=== PATIENT | male | born 1935 | race Caucasian/White ===

== ENCOUNTER 2018-04-22 23:33 | Emergency (ER) | payer MEDICARE ==
--- NOTE | 2018-04-23 00:39 | ED ---
HPI Febrile Illness - HPI Summary HPI Summary: Patient with history of dementia from [facility] complains of fever up to 102 tonight and foul-smelling urine per staff. Staff denies any other symptoms. Patient himself denies any symptoms, states he feels normal just like he always does. Denies fever, cough, sore throat, CP, SOB, N/V/V abdominal pain, change, change in BM. - History of Current Complaint Chief Complaint: EDFever Time Seen by Provider: 04/22/18 23:38 Hx Obtained From: Patient, Family/Site Safety Manager Onset/Duration: Started Hours Ago Timing: Constant Current Severity: None Pain Intensity: 0 Pain Scale Used: 0-10 Numeric Aggravating Factors: Nothing Alleviating Factors: Nothing - Allergy/Home Medications Allergies/Adverse Reactions: Allergies Allergy/AdvReac Type Severity Reaction Status Date / Time No Known Allergies Allergy Verified 01/24/16 09:42 PMH/Surg Hx/FS Hx/Imm Hx Endocrine/Hematology History: Denies: Hx Diabetes Cardiovascular History: Reports: Hx Hypercholesterolemia Denies: Hx Congestive Heart Failure, Hx Hypertension Respiratory History: Denies: Hx Lung Cancer History: Denies: Hx Dialysis, Hx Renal Disease Psychiatric History: Reports: Hx Anxiety - Immunization History Date of Tetanus Vaccine: Unk Date of Influenza Vaccine: None Infectious Disease History: No Infectious Disease History: Denies: Traveled Outside the [place] in Last 30 Days - Family History Known Family History: Positive: Unknown - Social History Lives: [facility] Alcohol Use: Occasionally Substance Use Type: Reports: None Smoking Status (MU): Former Smoker Review of Systems Positive: Fever Eyes: Negative ENT: Negative Cardiovascular: Negative Respiratory: Negative Gastrointestinal: Negative Genitourinary: Negative Positive: other Musculoskeletal: Negative Skin: Negative Neurological: Negative Psychological: Normal All Other Systems Reviewed And Are Negative: Yes Physical Exam Triage Information Reviewed: Yes Vital Signs On Initial Exam: Initial Vitals Temp Pulse Resp BP Pulse Ox 100.9 F 85 15 120/76 93 04/22/18 23:36 04/22/18 23:36 04/22/18 23:36 04/22/18 23:36 04/22/18 23:36 Vital Signs Reviewed: Yes Appearance: Positive: Well-Appearing Skin: Positive: Warm Head/Face: Positive: Normal Head/Face Inspection Eyes: Positive: Normal ENT: Positive: Normal ENT inspection Neck: Positive: Supple Respiratory/Lung Sounds: Positive: Clear to Auscultation Cardiovascular: Positive: Normal Abdomen Description: Positive: Nontender Musculoskeletal: Positive: Normal Neurological: Positive: Normal Psychiatric: Positive: Normal AVPU Assessment: Alert - [place] Coma Scale Best Eye Response: 4 - Spontaneous Best Motor Response: 6 - Obeys Commands Best Verbal Response: 5 - Oriented Coma Scale Total: 15 Diagnostics - Vital Signs Vital Signs Temp Pulse Resp BP Pulse Ox 04/22/18 23:36 100.9 F 85 15 120/76 93 - Laboratory Result Diagrams: 04/23/18 00:30 04/23/18 00:30 Lab Statement: Any lab studies that have been ordered have been reviewed, and results considered in the medical decision making process. Course/Dx - Course Course Of Treatment: Patient with history of dementia from [facility] complains of fever up to 102 tonight and foul-smelling urine per staff. Staff denies any other symptoms. Patient himself denies any symptoms, states he feels normal just like he always does. Denies fever, cough, sore throat, CP, SOB, N/V/V abdominal pain, change, change in BM. Physical exam unremarkable. Mild fever 100.9 initially here in the ED, but fever resolved. Blood pressure initailly 120/76, but decreased to 104/55. BUN/CR ratio 26.9. Patient refused IV fluids. Patient has DNR with MOLST form and does not wish to be here at the hospital. Patient's family apparently convinced [facility] staff to send patient to the hospital. Labs appear patient baseline.. Chest x-ray negative. Patient has been noncompliant with producing urine. Due to reported foul smelling urine and fever, we will treat patient with Levaquin here and d/c to group home facility with Rx for levaquin. - Diagnoses Provider Diagnoses: Fever Discharge - Sign-Out/Discharge Documenting (check all that apply): Patient Departure - Discharge Plan Condition: Stable Disposition: CUSTODIAL FACILITY Prescriptions: Levofloxacin TAB* [Levaquin TAB*] 500 mg PO DAILY 7 Days #7 tab Patient Education Materials: Fever in Adults (ED) Referrals: No Primary Care Phys,NOPCP [Primary Care Provider] - Additional Instructions: Take antibiotics as directed. Drink fluids to maintain hydration. Return to the ED for any new or worsening symptoms. - Billing Disposition and Condition Condition: STABLE Disposition: Residential Facility
[2018-04-23 00:43] LABS: Hematocrit 29 % (42-52); Hemoglobin 9.5 g/dl (14.0-18.0); Mean Corpuscular HGB Conc 33 g/dl (31-36); Mean Corpuscular Hemoglobin 30 pg (27-31); Mean Corpuscular Volume 91 fL (80-94); Mean Platelet Volume 9.4 fL (7.4-10.4); Platelet Count 174 10^3/ul (150-450); Red Blood Count 3.16 10^6/ul (4.00-5.40); Red Cell Distribution Width 16 % (10.5-15); White Blood Count 3.9 10^3/ul (3.5-10.8)
[2018-04-23 01:01] LABS: EGFR Non-African American 77.6 (>60)
[2018-04-23 01:05] LABS: ABS Basophils 0 10^3/ul (0-0.2); ABS Eosinophils 0 10^3/ul (0-0.6); ABS Lymphocytes 0.5 10^3/ul (1.0-4.8); ABS Monocytes 0.8 10^3/ul (0-0.8); ABS Neutrophils 2.4 10^3/ul (1.5-7.7); ABS Nucleated RBC 0 10^3/ul
[2018-04-23 01:08] LABS: Monocytes % 20 %
[2018-04-23 01:11] LABS: ABS Neutrophils 2.5 10^3/ul (1.5-7.7)
[2018-04-23] MEDS ORDERED: NS 0.9% 500 ML* 500 ML IV ONE (01:13)
[2018-04-23] MEDS ORDERED: Levofloxacin TAB* 500 MG PO ONE (02:25)
[2018-04-23 02:56] VITALS: BP 104/53
== END 2018-04-23 03:21 ==
LOC: ED 23:33
DX: R50.9 Fever, unspecified (principal); Z87.891 Personal history of nicotine dependence
CPT/HCPCS: 36415; 71045; 80053; 83605; 85025; 85060; 86140; 87040; 99282

== ENCOUNTER 2018-09-08 00:06 | Emergency (ER) | payer MEDICARE ==
[2018-09-08 01:18] LABS: Albumin 2.6 g/dL (3.2-5.2); Albumin/Globulin Ratio 0.7 (1-3); BUN/Creatinine Ratio 28.7 (8-20); Calcium 8.5 mg/dL (8.6-10.3); EGFR African American 85.2 (>60); EGFR Non-African American 70.4 (>60); Globulin 3.7 g/dL (2-4); Potassium 3.7 mmol/L (3.5-5.0); Total Bilirubin 0.6 mg/dL (0.2-1.0); Total Protein 6.3 g/dL (6.4-8.9)
[2018-09-08 01:19] LABS: Hematocrit 29 % (36-46); Hemoglobin 9.2 g/dL (14.0-18.0); Mean Corpuscular HGB Conc 32 g/dL (31-36); Mean Corpuscular Hemoglobin 30 pg (27-31); Mean Corpuscular Volume 92 fL (80-94); Red Blood Count 3.12 10^6 /uL (4.18-5.48); Red Cell Distribution Width 18 % (10.5-15); White Blood Count 6.3 10^3/uL (3.5-10.8)
[2018-09-08 01:20] LABS: Troponin I 0.01 ng/mL (<0.04)
--- NOTE | 2018-09-08 01:36 | ED ---
HPI Chest Pain - HPI Summary HPI Summary: Patient from [facility]. Per EMS patient complains of vomiting and chest pain. EMS states they observed no vomiting or indication of pain. Per [facility] staff, History of fall "days ago" with positive LOC. Patient himself denies any symptoms pain or injury, does not know why he was sent to the ED. Patient alert and oriented, responding coherently. Vital signs within normal limits. - History of Current Complaint Chief Complaint: EDGeneral Time Seen by Provider: 09/08/18 00:46 Hx Obtained From: Patient Current Severity: None Pain Intensity: 0 Pain Scale Used: 0-10 Numeric Aggravating Factor(s): Nothing Alleviating Factor(s): Nothing Associated Signs and Symptoms: Positive: Negative - Allergy/Home Medications Allergies/Adverse Reactions: Allergies Allergy/AdvReac Type Severity Reaction Status Date / Time No Known Allergies Allergy Verified 01/24/16 09:42 PMH/Surg Hx/FS Hx/Imm Hx Endocrine/Hematology History: Denies: Hx Diabetes Cardiovascular History: Reports: Hx Hypercholesterolemia Denies: Hx Congestive Heart Failure, Hx Hypertension Respiratory History: Denies: Hx Lung Cancer History: Denies: Hx Dialysis, Hx Renal Disease Psychiatric History: Reports: Hx Anxiety - Immunization History Date of Tetanus Vaccine: Unk Date of Influenza Vaccine: None Infectious Disease History: Unable to Obtain/Confirm Infectious Disease History: Denies: Traveled Outside the in Last 30 Days - Family History Known Family History: Positive: Unknown - Social History Alcohol Use: None Substance Use Type: Reports: None Smoking Status (MU): Former Smoker Review of Systems Constitutional: Negative Eyes: Negative ENT: Negative Cardiovascular: Negative Respiratory: Negative Gastrointestinal: Negative Genitourinary: Negative Musculoskeletal: Negative Skin: Negative Neurological: Negative Psychological: Normal All Other Systems Reviewed And Are Negative: Yes Physical Exam - Summary Physical Exam Summary: Abdomen soft nontender. RRR. Lung sounds clear to auscultation bilaterally. No peripheral edema. Patient moving all 4 extremities freely. neuro exam normal. No indication of trauma to mouth, face, head noted. No pain with palpation of back, chest wall. Triage Information Reviewed: Yes Vital Signs On Initial Exam: Initial Vitals Temp Pulse Resp BP Pulse Ox 98.1 F 97 16 121/62 93 09/08/18 00:25 09/08/18 00:25 09/08/18 00:25 09/08/18 00:25 09/08/18 00:25 Vital Signs Reviewed: Yes Appearance: Positive: Well-Appearing Skin: Positive: Warm Head/Face: Positive: Normal Head/Face Inspection Eyes: Positive: Normal Dental: Negative: Dental Fracture @, Bleeding Neck: Positive: Supple Respiratory/Lung Sounds: Positive: Clear to Auscultation Cardiovascular: Positive: Normal Abdomen Description: Positive: Nontender Musculoskeletal: Positive: Normal Neurological: Positive: Normal Psychiatric: Positive: Normal AVPU Assessment: Alert - [place] Coma Scale Best Eye Response: 4 - Spontaneous Best Motor Response: 6 - Obeys Commands Best Verbal Response: 5 - Oriented Coma Scale Total: 15 Diagnostics - Vital Signs Vital Signs Temp Pulse Resp BP Pulse Ox 09/08/18 01:07 94 26 113/68 93 09/08/18 01:00 94 22 92 09/08/18 00:37 95 138/67 91 09/08/18 00:36 96 92 09/08/18 00:25 98.1 F 97 16 121/62 93 - Laboratory Lab Results: Lab Results 09/08/18 09/08/18 09/08/18 Range/Units 00:55 00:55 00:55 WBC 6.3 (3.5-10.8) 10^3/uL RBC 3.12 L (4.18-5.48) 10^6 /uL Hgb 9.2 L (14.0-18.0) g/dL Hct 29 L (36-46) % MCV 92 (80-94) fL MCH 30 (27-31) pg MCHC 32 (31-36) g/dL RDW 18 H (10.5-15) % Plt Count Pending MPV Pending Neut % (Auto) Pending Lymph % (Auto) Pending [place] % (Auto) Pending Eos % (Auto) Pending Baso % (Auto) Pending Absolute Neuts (auto) Pending Absolute Lymphs (auto) Pending Absolute Monos (auto) Pending Absolute Eos (auto) Pending Absolute Basos (auto) Pending Absolute Nucleated RBC Pending Nucleated RBC % Pending Sodium 141 (135-145) mmol/L Potassium 3.7 (3.5-5.0) mmol/L Chloride 104 (101-111) mmol/L Carbon Dioxide 31 (22-32) mmol/L Anion Gap 6 (2-11) mmol/L BUN 29 H (6-24) mg/dL Creatinine 1.01 (0.67-1.17) mg/dL Est GFR ( Amer) 85.2 (>60) Est GFR (Non-Af Amer) 70.4 (>60) BUN/Creatinine Ratio 28.7 H (8-20) Glucose 237 H (70-100) mg/dL Lactic Acid 1.5 (0.5-2.0) mmol/L Calcium 8.5 L (8.6-10.3) mg/dL Total Bilirubin 0.60 (0.2-1.0) mg/dL AST 56 H (13-39) U/L ALT 42 (7-52) U/L Alkaline Phosphatase 160 H (34-104) U/L Troponin I 0.01 (<0.04) ng/mL Total Protein 6.3 L (6.4-8.9) g/dL Albumin 2.6 L (3.2-5.2) g/dL Globulin 3.7 (2-4) g/dL Albumin/Globulin Ratio 0.7 L (1-3) Result Diagrams: 09/08/18 00:55 09/08/18 00:55 Lab Statement: Any lab studies that have been ordered have been reviewed, and results considered in the medical decision making process. Chest Pain Course/Dx - Course Course Of Treatment: Patient from [facility]. Per EMS patient complains of vomiting and chest pain. EMS states they observed no vomiting or indication of pain. Per [facility] staff, History of fall "days ago" with positive LOC. Patient himself denies any symptoms pain or injury, does not know why he was sent to the ED. Patient alert and oriented, responding coherently. Vital signs within normal limits. Physical exam:Abdomen soft nontender. RRR. Lung sounds clear to auscultation bilaterally. No peripheral edema. Patient moving all 4 extremities freely. neuro exam normal. No indication of trauma to mouth , face, head noted. No pain with palpation of back, chest wall. Patient O2 sats 92-93% which is patient baseline. Other Vital signs within normal limits BGL 237. Labs at patient baseline. Initial troponin negative. EKG sinus rhythm. Chest x-ray negative for acute process. No vomiting noted. Patient continues to deny chest pain. Second troponin pending. We'll sign patient out to Dr. Cunningham - Diagnoses Provider Diagnoses: Chest pain Discharge - Sign-Out/Discharge Documenting (check all that apply): Sign-Out Patient Signing out patient TO: Baldo Cunningham Patient Received Moderate/Deep Sedation with Procedure: No - Discharge Plan Condition: Stable Disposition: HOME Patient Education Materials: Noncardiac Chest Pain (ED) Referrals: [facility] [Outside] - Billing Disposition and Condition Condition: STABLE Disposition: Home
[2018-09-08 01:53] LABS: ABS Basophils 0 10^3/ul (0-0.2); ABS Eosinophils 0.1 10^3/ul (0-0.6); ABS Lymphocytes 0.5 10^3/ul (1.0-4.8); ABS Monocytes 0.9 10^3/ul (0-0.8); ABS Neutrophils 4.7 10^3/ul (1.5-7.7); ABS Nucleated RBC 0 10^3/ul; Eosinophil % 1.9 %; Lymphocyte % 8.3 %; Nucleated Red Blood Cells % 0
[2018-09-08 01:56] LABS: Platelet Count Platelets clumped. 10^3/uL (150-450)
--- NOTE | 2018-09-08 05:34 | ED ---
Progress - Progress Note Progress Note: This patient was signed out from STEPHANIE Stanford, to Dr. Cunningham upon shift change pending second troponin. Second troponin is 0.01. The patient will be discharged and follow up with his PCP. He is agreeable with this plan. Course/Dx - Course Course Of Treatment: This patient was signed out from STEPHANIE Stanford, to Dr. Cunningham upon shift change pending second troponin. Second troponin is 0.01. The patient will be discharged and follow up with his PCP. He is agreeable with this plan. - Diagnoses Provider Diagnoses: Chest pain Discharge - Sign-Out/Discharge Documenting (check all that apply): Patient Departure - DC, Receiving Sign-Out Receiving patient FROM: Evert Goddard Patient Received Moderate/Deep Sedation with Procedure: No - Discharge Plan Condition: Stable Disposition: HOME Patient Education Materials: Noncardiac Chest Pain (ED) Referrals: [facility] [Outside] - Billing Disposition and Condition Condition: STABLE Disposition: Home - Attestation Statements Document Initiated by Scribe: Yes Documenting Scribe: Mark Perez Provider For Whom Winnie is Documenting (Include Credential): Baldo Cunningham MD Scribe Attestation: Mark Jimenez scribed for Baldo Cunningham MD on 09/11/18 at 0553. Scribe Documentation Reviewed: Yes Provider Attestation: The documentation as recorded by the Mark curiel accurately reflects the service I personally performed and the decisions made by , Baldo Cunningham MD Status of Scribe Document: Viewed
[2018-09-08 06:24] VITALS: BP 125/64
== END 2018-09-08 08:46 | disposition home or self-care (01) ==
LOC: ED 00:06
DX: R07.9 Chest pain, unspecified (principal); F41.9 Anxiety disorder, unspecified; E78.00 Pure hypercholesterolemia, unspecified; Z87.891 Personal history of nicotine dependence
CPT/HCPCS: 36415; 71045; 80053; 83605; 84484; 85025; 93005; 99284

== ENCOUNTER 2018-11-24 02:19 | Emergency (ER) | payer MEDICARE ==
[2018-11-24] MEDS ORDERED: Pantoprazole IV* 40 MG IV ONE (02:35)
[2018-11-24] MEDS ORDERED: Pantoprazole* 80 mg IN NS 80 MG/250 ML BAG IV ONE (02:35)
[2018-11-24] MEDS ORDERED: NS 0.9% 1000 ML** 1,000 ML IV ONE (02:36)
[2018-11-24] MEDS ORDERED: Ondansetron INJ* 2 MG/ML VIAL IV ONE (02:40)
[2018-11-24] MEDS ORDERED: Ondansetron INJ* 2 MG/ML VIAL ONE (02:40)
[2018-11-24 03:01] LABS: Hematocrit 22 % (42-52); Hemoglobin 6.9 g/dL (14.0-18.0); Mean Corpuscular HGB Conc 32 g/dL (31-36); Mean Corpuscular Hemoglobin 30 pg (27-31); Mean Corpuscular Volume 93 fL (80-94); Mean Platelet Volume 9.9 fL (7.4-10.4); Platelet Count 262 10^3/uL (150-450); Red Blood Count 2.32 10^6 /uL (4.18-5.48); Red Cell Distribution Width 17 % (10-15); White Blood Count 12.2 10^3/uL (3.5-10.8)
[2018-11-24 03:09] LABS: INR 1.25 (0.82-1.09)
[2018-11-24 03:17] LABS: Albumin 2.4 g/dL (3.2-5.2); Albumin/Globulin Ratio 0.6 (1-3); BUN/Creatinine Ratio 51.6 (8-20); Calcium 8.2 mg/dL (8.6-10.3); EGFR Non-African American 79.4 (>60); Globulin 3.7 g/dL (2-4); Potassium 4.3 mmol/L (3.5-5.0); Total Bilirubin 0.6 mg/dL (0.2-1.0); Total Protein 6.1 g/dL (6.4-8.9)
[2018-11-24 03:52] LABS: ABS Basophils 0.1 10^3/ul (0-0.2); ABS Eosinophils 0.2 10^3/ul (0-0.6); ABS Lymphocytes 1.5 10^3/ul (1.0-4.8); ABS Monocytes 1.7 10^3/ul (0-0.8); ABS Neutrophils 8.8 10^3/ul (1.5-7.7); Eosinophil % 1.5 %; Lymphocyte % 12.1 %
--- NOTE | 2018-11-24 05:51 | ED ---
Complex/Multi-Sys Presentation - HPI Summary HPI Summary: This patient is a 83 year old M presenting to [facility] via EMS with a chief complaint of vomiting blood since this morning. Pt was found on the floor vomiting blood and was actively vomiting blood on arrival to [facility]. Pt is from [facility]. Pt's family is enroute to facility at this time. The patient rates the pain 6/10 in severity. Symptoms aggravated by nothing. Symptoms alleviated by nothing. - History Of Current Complaint Chief Complaint: EDGIBleed Time Seen by Provider: 11/24/18 02:36 Hx Obtained From: Patient, EMS Onset/Duration: Sudden Onset, Lasting Hours - since this morning Timing: Constant Severity Initially: Moderate Aggravating Factor(s): nothing Alleviating Factor(s): nothing Associated Signs And Symptoms: Positive: Hematemesis - Allergies/Home Medications Allergies/Adverse Reactions: Allergies Allergy/AdvReac Type Severity Reaction Status Date / Time No Known Allergies Allergy Verified 01/24/16 09:42 Home Medications: Home Medications Acetaminophen [Tylenol] 975 mg PO Q6H 11/24/18 [History Confirmed 11/24/18] Allopurinol 100 mg PO DAILY 11/24/18 [History Confirmed 11/24/18] Ketoconazole 1 applic .SEE ORDER BEDTIME 11/24/18 [History Confirmed 11/24/18] LORazepam [Lorazepam] 2 mg PO Q6HR 11/24/18 [History Confirmed 11/24/18] Mag Hydrox/Aluminum Hyd/Simeth [Maalox Advanced 200-200-20 mg/5Ml] 1 nina PO Q6H 11/24/18 [History Confirmed 11/24/18] Morphine CONCENTRATE ORAL SYR* 5 mg PO Q1HR 11/24/18 [History Confirmed 11/24/18 ] Ondansetron HCl [Zofran 4 MG TAB] 4 mg PO Q6H 11/24/18 [History Confirmed ] PMH/Surg Hx/FS Hx/Imm Hx Previously Healthy: No Endocrine/Hematology History: Denies: Hx Diabetes Cardiovascular History: Reports: Hx Hypercholesterolemia Denies: Hx Congestive Heart Failure, Hx Hypertension Respiratory History: Denies: Hx Lung Cancer History: Denies: Hx Dialysis, Hx Renal Disease Psychiatric History: Reports: Hx Anxiety - Surgical History Surgical History: Unable to Obtain/Confirm - Immunization History Date of Tetanus Vaccine: Unk Date of Influenza Vaccine: None Infectious Disease History: No Infectious Disease History: Denies: Traveled Outside the US in Last 30 Days - Family History Known Family History: Positive: Unknown - Social History Alcohol Use: None Hx Substance Use: No Substance Use Type: Reports: None Hx Tobacco Use: Yes Smoking Status (MU): Former Smoker Review of Systems Negative: Fever Positive: Vomiting - vomiting blood All Other Systems Reviewed And Are Negative: Yes Physical Exam - Summary Physical Exam Summary: VITAL SIGNS: Reviewed. GENERAL: pt vomiting blood, patient is a well-developed and nourished MALE who is lying comfortable in the stretcher. Patient is not in any acute respiratory distress. HEAD AND FACE: No signs of trauma. No ecchymosis, hematomas or skull depressions. No sinus tenderness. EYES: PERRLA, EOMI x 2, No injected conjunctiva, no nystagmus. EARS: Hearing grossly intact. Ear canals and tympanic membranes are within normal limits. MOUTH: Oropharynx within normal limits. NECK: Supple, trachea is midline, no adenopathy, no JVD, no carotid bruit, no c- spine tenderness, neck with full ROM CHEST: Symmetric, no tenderness at palpation LUNGS: Clear to auscultation bilaterally. No wheezing or crackles. CVS: Regular rate and rhythm, S1 and S2 present, no murmurs or gallops appreciated. ABDOMEN: Soft, non-tender. No signs of distention. No rebound no guarding, and no masses palpated. Bowel sounds are normal. EXTREMITIES: FROM in all major joints, no edema, no cyanosis or clubbing. NEURO: Alert and oriented x 3. No acute neurological deficits. Speech is normal and follows commands. SKIN: pale, dry, and warm Triage Information Reviewed: Yes Vital Signs On Initial Exam: Initial Vitals Temp Pulse Resp BP Pulse Ox 98.3 F 85 18 145/70 92 11/24/18 02:24 11/24/18 02:24 11/24/18 02:24 11/24/18 02:24 11/24/18 02:24 Vital Signs Reviewed: Yes Diagnostics - Vital Signs Vital Signs Temp Pulse Resp BP Pulse Ox 11/24/18 05:17 79 17 99/42 98 11/24/18 05:00 82 17 96 11/24/18 04:48 82 19 96/40 97 11/24/18 04:08 92 21 125/53 98 11/24/18 04:00 85 19 97 11/24/18 03:47 82 20 101/39 98 11/24/18 03:17 81 16 117/54 95 11/24/18 03:00 86 20 92 11/24/18 02:51 81 23 92 11/24/18 02:24 98.3 F 85 18 145/70 92 - Laboratory Lab Results: Lab Results 11/24/18 11/24/18 11/24/18 Range/Units 02:54 02:54 02:54 WBC 12.2 H (3.5-10.8) 10^3/uL RBC 2.32 L (4.18-5.48) 10^6 /uL Hgb 6.9 L (14.0-18.0) g/dL Hct 22 L (42-52) % MCV 93 (80-94) fL MCH 30 (27-31) pg MCHC 32 (31-36) g/dL RDW 17 H (10-15) % Plt Count 262 (150-450) 10^3/uL MPV 9.9 (7.4-10.4) fL Neut % (Auto) 72.2 % Lymph % (Auto) 12.1 % [place] % (Auto) 13.6 % Eos % (Auto) 1.5 % Baso % (Auto) 0.6 % Absolute Neuts (auto) 8.8 H (1.5-7.7) 10^3/ul Absolute Lymphs (auto) 1.5 (1.0-4.8) 10^3/ul Absolute Monos (auto) 1.7 H (0-0.8) 10^3/ul Absolute Eos (auto) 0.2 (0-0.6) 10^3/ul Absolute Basos (auto) 0.1 (0-0.2) 10^3/ul Absolute Nucleated RBC 0.0 10^3/ul Nucleated RBC % 0.0 INR (Anticoag Therapy) 1.25 H (0.82-1.09) APTT 32.0 (26.0-38.0) seconds Sodium 141 (135-145) mmol/L Potassium 4.3 (3.5-5.0) mmol/L Chloride 108 (101-111) mmol/L Carbon Dioxide 27 (22-32) mmol/L Anion Gap 6 (2-11) mmol/L BUN 47 H (6-24) mg/dL Creatinine 0.91 (0.67-1.17) mg/dL Est GFR ( Amer) 96.0 (>60) Est GFR (Non-Af Amer) 79.4 (>60) BUN/Creatinine Ratio 51.6 H (8-20) Glucose 179 H (70-100) mg/dL Calcium 8.2 L (8.6-10.3) mg/dL Total Bilirubin 0.60 (0.2-1.0) mg/dL AST 39 (13-39) U/L ALT 23 (7-52) U/L Alkaline Phosphatase 166 H (34-104) U/L Total Protein 6.1 L (6.4-8.9) g/dL Albumin 2.4 L (3.2-5.2) g/dL Globulin 3.7 (2-4) g/dL Albumin/Globulin Ratio 0.6 L (1-3) Blood Type Antibody Screen Crossmatch 11/24/18 Range/Units 02:54 WBC (3.5-10.8) 10^3/uL RBC (4.18-5.48) 10^6 /uL Hgb (14.0-18.0) g/dL Hct (42-52) % MCV (80-94) fL MCH (27-31) pg MCHC (31-36) g/dL RDW (10-15) % Plt Count (150-450) 10^3/uL MPV (7.4-10.4) fL Neut % (Auto) % Lymph % (Auto) % [place] % (Auto) % Eos % (Auto) % Baso % (Auto) % Absolute Neuts (auto) (1.5-7.7) 10^3/ul Absolute Lymphs (auto) (1.0-4.8) 10^3/ul Absolute Monos (auto) (0-0.8) 10^3/ul Absolute Eos (auto) (0-0.6) 10^3/ul Absolute Basos (auto) (0-0.2) 10^3/ul Absolute Nucleated RBC 10^3/ul Nucleated RBC % INR (Anticoag Therapy) (0.82-1.09) APTT (26.0-38.0) seconds Sodium (135-145) mmol/L Potassium (3.5-5.0) mmol/L Chloride (101-111) mmol/L Carbon Dioxide (22-32) mmol/L Anion Gap (2-11) mmol/L BUN (6-24) mg/dL Creatinine (0.67-1.17) mg/dL Est GFR ( Amer) (>60) Est GFR (Non-Af Amer) (>60) BUN/Creatinine Ratio (8-20) Glucose (70-100) mg/dL Calcium (8.6-10.3) mg/dL Total Bilirubin (0.2-1.0) mg/dL AST (13-39) U/L ALT (7-52) U/L Alkaline Phosphatase (34-104) U/L Total Protein (6.4-8.9) g/dL Albumin (3.2-5.2) g/dL Globulin (2-4) g/dL Albumin/Globulin Ratio (1-3) Blood Type A Positive Antibody Screen Negative Crossmatch See Detail Result Diagrams: 11/24/18 02:54 11/24/18 02:54 Lab Statement: Any lab studies that have been ordered have been reviewed, and results considered in the medical decision making process. - EKG 0758 Cardiac Rate: NL - 86 BPM EKG Rhythm: Sinus Rhythm Summary of EKG Findings: sinus rhythm, 86 BPM Complex Multi-Symp Course/Dx Course Of Treatment: 83 years old male brought to the emergency room [facility] because of hematemesis and upper GI bleed. Physical exam shows pt is pale and vomiting blood. Patient had MOLST form signed recently stating that his comfort care. Prior to sending presented to the emergency room. Charge nurse at the correction contacted [facility] hospitalist Dr. Casper. Dr. Casper advised her to send the patient emergency room for evaluation. Nursing electrical tests supervisor discussed case with patient's son. Patient's son advised her to bring the patient is emergency room to be treated. When I interviewed patient in the emergency room, patient was actively vomiting blood. That was about 300 cc of blood in the vomiting bag. Mini-Mental Status exam for the patient was intact. Patient stated that he does remind to be treated. We contacted the patient's son. He stated that he would be in the emergency room. Patient's son did not show up as he told us. I did discuss with patient blood transfusion. Patient agreed to be transfused. Patient has capacity to make decisions. Patient seems to change his mind about MOLST form he signed. EKG at 0758 shows sinus rhythm and 86 BPM. Lab results show WBC 12.2, RBC 2.32 , Hgb 6.9, Hct 22, RDW 17, absolute neuts 8.8, absolute monos 1.7, INR 1.25, BUN 47, BUN/creatinine 51.6, glucose 179, calcium 8.2, alkaline phosphatase 166 , total protein 6.1, albumin 2.4, albumin/globulin ratio 0.6. Case discussed with admitting hospitalist Dr. Casper. Patient will be admitted to his service with upper GI bleed. During ED course, pt was given fluids, Zofran, Protonix. - Diagnoses Provider Diagnoses: Upper GI bleed - Physician Notifications Discussed Care Of Patient With: Yuliana Casper Instructed by Provider To: Other - Case discussed with admitting hospitalist Dr. Casper. Patient will be admitted to his service with upper GI bleed. Discharge - Sign-Out/Discharge Documenting (check all that apply): Patient Departure - admit Patient Received Moderate/Deep Sedation with Procedure: No - Discharge Plan Condition: Fair Disposition: ADMITTED TO [facility] Referrals: No Primary Care Phys,NOPCP [Primary Care Provider] - - Attestation Statements Document Initiated by Scribe: Yes Documenting Scribe: Felix Thornton Provider For Whom Scribe is Documenting (Include Credential): Dr. Cheryl Martines MD Scribe Attestation: I, ceci Munoz for Dr. Cheryl Martines MD on 11/24/18 at 0808. Status of Scribe Document: Ready
--- NOTE | 2018-11-24 07:45 | ED ---
Progress - Progress Note Progress Note: This patient is an 83 year old M presenting to [facility] with a chief complaint of burning chest pain. Patient denies abdominal pain. Pt does not know the day, year or the president ceo & founder. Pt does not know if he would like a transfusion. Course/Dx - Course Course Of Treatment: This patient is an 83 year old M presenting to [facility] with a chief complaint of burning chest pain. Patient denies abdominal pain. Pt does not know the day, year or the president ceo & founder. Pt does not know if he would like a transfusion. Pt does not want to be admitted. Pt will be discharged with follow up from Dr. Lawler. - Diagnoses Provider Diagnoses: Upper GI bleed - Provider Notifications Discussed Care Of Patient With: Maricruz Lawler Time Discussed With Above Provider: 08:05 Discharge - Sign-Out/Discharge Documenting (check all that apply): Patient Departure - Discharge Patient Received Moderate/Deep Sedation with Procedure: No - Discharge Plan Condition: Fair Disposition: HOME Patient Education Materials: Gastrointestinal Bleeding (ED) Referrals: Maricruz Lawler DO [Doctor of Osteopathy] - - Attestation Statements Document Initiated by Scribe: Yes Documenting Scribe: Ivana Orellana Provider For Whom Scribe is Documenting (Include Credential): Dr. Baldo Cunningham MD Scribe Attestation: Ivana Jimenez scribed for Dr. Baldo Cunningham MD on 11/24/18 at 1044.
[2018-11-24] MEDS ORDERED: Morphine INJ* 2 MG/ML 1 ML SYRINGE (TWO MG - NEW SYRINGE VERSION) IV ONE (07:59)
[2018-11-24 08:14] LABS: Troponin I 0.01 ng/mL (<0.04)
[2018-11-24 08:20] LABS: Hematocrit 21 % (42-52); Hemoglobin 6.8 g/dL (14.0-18.0)
[2018-11-24 10:02] VITALS: BP 110/49
--- NOTE | 2018-11-24 18:47 | PN ---
Progress Note - Progress Note Date of Service: 11/24/18 Note: I was asked to see Mr Musa for possible admission. I know the patient from [facility]. His MOLST form states DNR, DNI, comfort measures and DNH. The patient historically has not wanted anything done in terms of his care. He presented to the ER with c/o hematemesis. His Hb is down to 6.9. Repeat 6.8 5hr later. I spoke with the patient's son Shon (HCP) and explained that Mr Musa's MOLST would indicate we d/c him back to [facility] and manage him there with oral PPI and follow up labs on Thursday. Shon agreed to this plan. I explained that if hospital treatment would be wanted in the future (worsened hematemesis or any other concerning symptoms) the MOLST form should be updated.
== END 2018-11-24 10:04 | disposition home or self-care (01) ==
LOC: ED 02:19
DX: K92.2 Gastrointestinal hemorrhage, unspecified (principal); E78.00 Pure hypercholesterolemia, unspecified; Z79.899 Other long term (current) drug therapy; Z79.891 Long term (current) use of opiate analgesic; Z87.891 Personal history of nicotine dependence
CPT/HCPCS: 36415; 80053; 84484; 85014; 85018; 85025; 85610; 85730; 86850; 86900; 86901; 86922; 93005; 96361; 96374; 96375; 99284; J2270; J2405